=== PATIENT | female | born 1980 ===

== ENCOUNTER → 2021-01-02 14:57 | Outpatient (CLI) | payer OTHER | END | disposition home or self-care (01) | LOC: LAB 14:57 | PROVIDERS: ATTEND Internal Medicine Hematology & Oncology | DX: D68.4 Acquired coagulation factor deficiency (principal) ==

== ENCOUNTER 2022-02-26 13:58 | Outpatient (CLI) | payer OTHER | END 2022-02-26 13:59 | disposition home or self-care (01) | LOC: SONOGRAMA 13:58 | PROVIDERS: ATTEND Pathology Anatomic Pathology & Clinical Pathology | DX: E04.2 Nontoxic multinodular goiter (principal) ==